=== PATIENT | female | born 1995 | race Caucasian/White ===

== ENCOUNTER 2017-11-27 22:40 | Outpatient (CLI) | payer OTHER ==
[2017-11-28 02:02] LABS: RUPTURE FETAL MEMBRANES NEGATIVE (NEGATIVE)
[2017-11-28 03:51] LABS: ADD UMIC YES; UR AMORPHOUS CRYSTAL FEW /HPF (NONE SEEN); UR ASCORBIC ACID NEGATIVE (NEGATIVE); UR BACTERIA FEW /HPF (NONE SEEN); UR BILIRUBIN (Dip) NEGATIVE (NEGATIVE); UR BLOOD (Dip) NEGATIVE (NEGATIVE); UR CLARITY SLIGHTLY CLOUDY (CLEAR); UR COLOR YELLOW (YELLOW); UR GLUCOSE (Dip) NEGATIVE (NEGATIVE); UR KETONES (Dip) NEGATIVE (NEGATIVE); UR LEUKOCYTE ESTERASE (Dip) TRACE Leu/ul (NEGATIVE); UR MUCUS FEW /HPF (NONE SEEN); UR NITRITE (Dip) NEGATIVE (NEGATIVE); UR RBC 1 /HPF (0-5); UR SPECIFIC GRAVITY (Dip) 1.015 (1.003-1.030); UR SQUAMOUS EPITHELIAL CELL FEW /HPF (FEW); UR TOTAL PROTEIN (Dip) NEGATIVE (NEGATIVE); UR UROBILINOGEN (Dip) NEGATIVE (NEGATIVE); UR WBC 5 /HPF (0-5)
== END 2017-11-28 05:44 | disposition home or self-care (01) ==
LOC: OBT 22:40 → L-D 22:41
DX: O9A.212 Injury, poisoning and certain other consequences of external causes complicating pregnancy, second trimester (principal); S29.011A Strain of muscle and tendon of front wall of thorax, initial encounter; X58.XXXA Exposure to other specified factors, initial encounter; Z3A.25 25 weeks gestation of pregnancy
CPT/HCPCS: 76815; 76817; 81001; 82731; 84112; 87086

== ENCOUNTER 2018-03-02 12:37 | Outpatient (CLI) | payer OTHER | END 2018-03-02 16:20 | disposition home or self-care (01) | LOC: OBT 12:37 → L-D 12:38 → OBT 16:20 | DX: O26.893 Other specified pregnancy related conditions, third trimester (principal); Z3A.39 39 weeks gestation of pregnancy | CPT/HCPCS: 76818 ==

== ENCOUNTER 2018-03-07 12:49 | Outpatient (CLI) | payer OTHER | END 2018-03-07 15:45 | disposition home or self-care (01) | LOC: OBT 12:49 → L-D 12:49 → OBT 15:45 | DX: O48.0 Post-term pregnancy (principal); Z3A.40 40 weeks gestation of pregnancy | CPT/HCPCS: 76815; 76818 ==

== ENCOUNTER 2018-03-09 08:36 | Inpatient (IN) | payer OTHER ==
[2018-03-09] MEDS ORDERED: LACTATED RINGER'S 1,000 ML IV (09:15)
[2018-03-09 09:29] LABS: ADD MAN DIFF? NO
[2018-03-09] MEDS ORDERED: METHYLERGONOVINE 0.2 MG INJ IM (09:30)
[2018-03-09] MEDS ORDERED: CARBOPROST 250 MCG INJ IM (09:30)
[2018-03-09] MEDS ORDERED: OXYTOCIN 30 UNITS/LR 500 ML IV ×2 (09:30→21:30)
[2018-03-09] MEDS ORDERED: MISOPROSTOL 200 MCG TAB PR (09:30)
[2018-03-09] MEDS ORDERED: IBUPROFEN 600 MG TAB PO (09:30)
[2018-03-09] MEDS ORDERED: LIDOCAINE 1% (MPF) 30 ML INJ INJ (09:30)
[2018-03-09 09:34] LABS: WHITE BLOOD COUNT 8.4 10^3/ul (4.8-10.8)
[2018-03-09 09:34] LABS: BASOPHILS % 0.5 % (0.0-2.0); EOSINOPHILS # 0.1 10^3/ul (0.0-0.5); EOSINOPHILS % 1.4 % (0.0-7.0); HEMATOCRIT 35.7 % (37.0-47.0); LYMPHOCYTES # 2.1 10^3/ul (0.8-2.9); LYMPHOCYTES % 24.5 % (18.0-55.0); MEAN CORPUSCULAR HEMOGLOBIN 28.5 pg (29.0-33.0); MEAN CORPUSCULAR HGB CONC 33.6 g/dl (32.0-37.0); MEAN CORPUSCULAR VOLUME 84.8 fl (72.0-104.0); MEAN PLATELET VOLUME 9.6 fl (7.4-10.4); MONOCYTE # 0.5 10^3/ul (0.3-0.9); MONOCYTES % 5.8 % (0.0-13.0); NEUTROPHIL # 5.6 10^3/ul (1.6-7.5); NEUTROPHILS % 66.1 % (30.0-74.0); PLATELET COUNT 228 10^3/UL (140-415); RED BLOOD COUNT 4.21 10^6/ul (4.20-5.40); RED CELL DISTRIBUTION WIDTH 13.9 % (11.5-14.5)
[2018-03-09] MEDS ORDERED: AMPICILLIN 2 GM/NS (PMX) 100 ML (09:52)
[2018-03-09 10:04] LABS: INR 0.83; PROTIME 11.5 Sec (11.9-14.9); PT RATIO 0.9
[2018-03-09 10:05] LABS: PARTIAL THROMBOPLASTIN TIME 28.3 Sec (25.0-35.0)
[2018-03-09] MEDS: LACTATED RINGER'S 1,000 ML IV ×2 (10:45→17:53)
[2018-03-09] MEDS: AMPICILLIN 2 GM/NS (PMX) 100 ML IV (10:45)
[2018-03-09 11:20] LABS: HEPATITIS B SURFACE ANTIGEN NEGATIVE (NEGATIVE)
[2018-03-09] MEDS: DINOPROSTONE 10 MG VAG SUPP VAG (12:20)
[2018-03-09] MEDS: AMPICILLIN 1 GM/NS (PMX) 50 ML IV ×3 (13:49→21:31)
[2018-03-09 15:12] LABS: RAPID PLASMA REAGIN NONREACTIVE (NR)
[2018-03-09] MEDS ORDERED: MINERAL OIL LIGHT 10 ML VIAL TOP (21:30)
[2018-03-09] MEDS: BUTORPHANOL 2 MG INJ IV (21:31)
[2018-03-10] MEDS: BUTORPHANOL 2 MG INJ IV (00:04)
[2018-03-10] MEDS: LACTATED RINGER'S 1,000 ML IV ×6 (00:48→22:49)
[2018-03-10] MEDS: AMPICILLIN 1 GM/NS (PMX) 50 ML IV ×6 (01:33→21:58)
[2018-03-10] MEDS ORDERED: FENTAnyl 2MCG/ML-ROPIV 0.2% 100 ML (01:51)
[2018-03-10] MEDS ORDERED: NALOXONE (0.4 MG/ML) INJ IV (02:00)
[2018-03-10] MEDS: OXYTOCIN 30 UNITS/LR 500 ML IV (04:41)
[2018-03-10] MEDS: FENTAnyl 2MCG/ML-ROPIV 0.2% 100 ML BAG EPI ×3 (09:55→20:05)
[2018-03-10] MEDS: CEFAZOLIN 2 GM/50 ML (PMX) 50 ML IVPB (23:40)
[2018-03-10] MEDS ORDERED: PHENYLephrine (100 MCG/ML) 5ML SYG (23:43)
[2018-03-10] MEDS ORDERED: morphine SULFATE/PF (10 MG/10 ML) INJ (23:46)
[2018-03-11] MEDS ORDERED: FENTAnyl 50 MCG/ML VIAL ×2 (00:08→00:09)
[2018-03-11] MEDS ORDERED: ONDANSETRON 4 MG INJ IV ×2 (01:00→02:30)
[2018-03-11] MEDS ORDERED: FENTAnyl 50 MCG/ML VIAL IV ×3 (01:00)
[2018-03-11] MEDS ORDERED: DIPHENHYDRAMINE 50 MG INJ IV ×2 (01:00→02:30)
[2018-03-11] MEDS ORDERED: HYDROmorphONE (0.2 MG/ML) 10ML SYG IV ×3 (01:00)
[2018-03-11] MEDS ORDERED: METOCLOPRAMIDE 10 MG INJ IV (01:00)
[2018-03-11] MEDS: OXYTOCIN 30 UNITS/LR 500 ML IV (01:03)
[2018-03-11] MEDS: AMPICILLIN 1 GM/NS (PMX) 50 ML IV (01:30)
[2018-03-11] MEDS: KETOROLAC 30 MG INJ IV ×4 (01:37→23:24)
[2018-03-11] MEDS ORDERED: NALOXONE (0.4 MG/ML) INJ IV (02:30)
[2018-03-11] MEDS ORDERED: HYDROmorphONE 0.5 MG/0.5 ML SYG IV ×2 (02:30)
[2018-03-11] MEDS ORDERED: ZOLPIDEM 5 MG TAB PO (02:30)
[2018-03-11] MEDS ORDERED: MISOPROSTOL 200 MCG TAB PR (03:30)
[2018-03-11] MEDS ORDERED: OXYTOCIN 30 UNITS/LR 500 ML IV (03:30)
[2018-03-11] MEDS ORDERED: METHYLERGONOVINE 0.2 MG INJ IM (03:30)
[2018-03-11] MEDS ORDERED: CARBOPROST 250 MCG INJ IM (03:30)
[2018-03-11] MEDS ORDERED: NA PHOSPHATE/BIPHOS 133 ML ENEMA PR (03:30)
[2018-03-11] MEDS: LACTATED RINGER'S 1,000 ML IV ×3 (04:48→20:48)
[2018-03-11] MEDS: CLINDAMYCIN 300 MG CAP PO ×4 (06:31→23:49)
[2018-03-11] MEDS: CEFAZOLIN 2 GM/50 ML (PMX) 50 ML IVPB ×3 (06:32→22:29)
[2018-03-11] MEDS: SENNA/DOCUSATE NA (8.6MG/50MG) TAB PO ×2 (10:16→20:48)
[2018-03-11] MEDS: LANOLIN 7 GM TUBE TOP (10:16)
[2018-03-11] MEDS: BISACODYL 10 MG SUPP PR (13:00)
[2018-03-11 15:03] LABS: ADD MAN DIFF? NO
[2018-03-11 15:05] LABS: WHITE BLOOD COUNT 17.1 10^3/ul (4.8-10.8)
[2018-03-11 15:05] LABS: BASOPHIL # 0.1 10^3/ul (0.0-0.1); BASOPHILS % 0.3 % (0.0-2.0); EOSINOPHILS # 0.1 10^3/ul (0.0-0.5); EOSINOPHILS % 0.6 % (0.0-7.0); HEMATOCRIT 29.5 % (37.0-47.0); HEMOGLOBIN 9.8 g/dl (12.0-16.0); LYMPHOCYTES % 11.9 % (18.0-55.0); MEAN CORPUSCULAR HGB CONC 33.2 g/dl (32.0-37.0); MEAN CORPUSCULAR VOLUME 84.3 fl (72.0-104.0); MEAN PLATELET VOLUME 9.7 fl (7.4-10.4); MONOCYTE # 1.2 10^3/ul (0.3-0.9); MONOCYTES % 7.2 % (0.0-13.0); NEUTROPHIL # 13.6 10^3/ul (1.6-7.5); NEUTROPHILS % 79.2 % (30.0-74.0); PLATELET COUNT 199 10^3/UL (140-415); RED CELL DISTRIBUTION WIDTH 14.5 % (11.5-14.5)
[2018-03-12] MEDS ORDERED: OXYCODONE/ACETAMINOPHEN (5/325) TAB PO (02:30)
[2018-03-12] MEDS ORDERED: HYDROCODONE/APAP (5/325) TAB PO (02:30)
[2018-03-12] MEDS: LACTATED RINGER'S 1,000 ML IV ×2 (03:27→11:27)
[2018-03-12] MEDS: CLINDAMYCIN 300 MG CAP PO ×4 (05:31→23:32)
[2018-03-12] MEDS: IBUPROFEN 800 MG TAB PO ×3 (05:31→21:36)
[2018-03-12 08:57] LABS: ADD MAN DIFF? NO
[2018-03-12 09:05] LABS: BASOPHIL # 0.1 10^3/ul (0.0-0.1); BASOPHILS % 0.4 % (0.0-2.0); EOSINOPHILS # 0.2 10^3/ul (0.0-0.5); EOSINOPHILS % 1.1 % (0.0-7.0); HEMATOCRIT 28.3 % (37.0-47.0); HEMOGLOBIN 9.4 g/dl (12.0-16.0); LYMPHOCYTES # 1.9 10^3/ul (0.8-2.9); LYMPHOCYTES % 12.7 % (18.0-55.0); MEAN CORPUSCULAR HEMOGLOBIN 28.1 pg (29.0-33.0); MEAN CORPUSCULAR HGB CONC 33.2 g/dl (32.0-37.0); MEAN CORPUSCULAR VOLUME 84.5 fl (72.0-104.0); MEAN PLATELET VOLUME 9.8 fl (7.4-10.4); MONOCYTES % 6.8 % (0.0-13.0); NEUTROPHIL # 11.5 10^3/ul (1.6-7.5); NEUTROPHILS % 77.7 % (30.0-74.0); PLATELET COUNT 214 10^3/UL (140-415); RED BLOOD COUNT 3.35 10^6/ul (4.20-5.40); RED CELL DISTRIBUTION WIDTH 14.6 % (11.5-14.5)
[2018-03-12 09:05] LABS: WHITE BLOOD COUNT 14.8 10^3/ul (4.8-10.8)
[2018-03-12] MEDS: SENNA/DOCUSATE NA (8.6MG/50MG) TAB PO ×2 (09:35→21:36)
[2018-03-13] MEDS: CLINDAMYCIN 300 MG CAP PO ×2 (05:40→12:00)
[2018-03-13] MEDS: IBUPROFEN 800 MG TAB PO (05:40)
[2018-03-13 08:32] LABS: ADD MAN DIFF? NO
[2018-03-13 08:39] LABS: BASOPHIL # 0.1 10^3/ul (0.0-0.1); BASOPHILS % 0.5 % (0.0-2.0); EOSINOPHILS # 0.3 10^3/ul (0.0-0.5); EOSINOPHILS % 2.5 % (0.0-7.0); HEMATOCRIT 29.5 % (37.0-47.0); HEMOGLOBIN 9.6 g/dl (12.0-16.0); LYMPHOCYTES # 2.3 10^3/ul (0.8-2.9); LYMPHOCYTES % 19.4 % (18.0-55.0); MEAN CORPUSCULAR HGB CONC 32.5 g/dl (32.0-37.0); MEAN PLATELET VOLUME 9.5 fl (7.4-10.4); MONOCYTE # 0.7 10^3/ul (0.3-0.9); MONOCYTES % 6.4 % (0.0-13.0); NEUTROPHIL # 8.1 10^3/ul (1.6-7.5); PLATELET COUNT 233 10^3/UL (140-415); RED BLOOD COUNT 3.43 10^6/ul (4.20-5.40); RED CELL DISTRIBUTION WIDTH 14.4 % (11.5-14.5)
[2018-03-13 08:39] LABS: WHITE BLOOD COUNT 11.6 10^3/ul (4.8-10.8)
[2018-03-13] MEDS: SENNA/DOCUSATE NA (8.6MG/50MG) TAB PO (09:00)
[2018-03-14] MEDS ORDERED: MEASLES,MUMPS,RUBELLA VACCINE INJ SC* (09:00)
[2018-03-14] MEDS ORDERED: DIPHTH/TET/ACEL PERTUSS (ADULT) 0.5 ML VIAL IM* (09:00)
== END 2018-03-13 15:26 | disposition home or self-care (01) | DRG 766 ==
LOC: L-D 08:36 → PP1 03-11 03:33
PROVIDERS: Obstetrics & Gynecology
PROC: 3E0P7VZ Introduction of Hormone into Female Reproductive, Via Natural or Artificial Opening (ICD-10-PCS; 2018-03-09 07:00)
PROC: 10D00Z1 Extraction of Products of Conception, Low, Open Approach (ICD-10-PCS; principal; 2018-03-10 22:30)
DX: O62.0 Primary inadequate contractions (principal); Z3A.40 40 weeks gestation of pregnancy; Z37.0 Single live birth
CPT/HCPCS: 85025; 85610; 85730; 86592; 86850; 86900; 86901; 87340; 94760; 99464